=== PATIENT | female | born 1945 | race Caucasian/White ===

== ENCOUNTER 2018-01-02 21:43 | Inpatient (IN) | payer OTHER ==
[~2018-01-02] VITALS: Ht 167.6 cm; Wt 72.6 kg
[2018-01-02] MEDS ORDERED: VASOTEC10 MG PO (21:54)
[2018-01-02] MEDS ORDERED: LEVOXYL150 MCG PO (21:55)
[2018-01-02] MEDS ORDERED: COUMADIN3 MG PO (21:55)
[2018-01-02] MEDS ORDERED: ZOCOR40 MG (21:56)
[2018-01-07] MEDS ORDERED: AMOX1TAB5 PO (19:30)
[2018-01-07] MEDS ORDERED: ZOLOFT50 MG PO (19:30)
== END 2018-01-07 20:00 | disposition home or self-care (01) | DRG 391 ==
LOC: ER 21:43 → MEDI 01-03 09:24
PROC: 3E0F7GC Introduction of Other Therapeutic Substance into Respiratory Tract, Via Natural or Artificial Opening (ICD-10-PCS; principal; 2018-01-03)
PROC: BW21Y0Z Computerized Tomography (CT Scan) of Abdomen and Pelvis using Other Contrast, Unenhanced and Enhanced (ICD-10-PCS; 2018-01-03)
DX: K57.32 Diverticulitis of large intestine without perforation or abscess without bleeding (principal); A41.9 Sepsis, unspecified organism; J20.9 Acute bronchitis, unspecified; F17.210 Nicotine dependence, cigarettes, uncomplicated

== ENCOUNTER 2018-01-11 06:26 | Inpatient (IN) | payer OTHER ==
[~2018-01-11] VITALS: Ht 160 cm; Wt 68.0 kg
[~2018-01-11 06:26] MED LIST: AMOX1TAB5 PO; COUMADIN3 MG PO; LEVOXYL150 MCG PO; VASOTEC10 MG PO; ZOCOR40 MG; ZOLOFT50 MG PO
[2018-01-12] MEDS ORDERED: ZOCOR40 MG PO (13:17)
[2018-01-12] MEDS ORDERED: BUPROPION HCL150 MG PO (13:18)
[2018-01-20] MEDS ORDERED: ISOSORBIDE MONO30 MG PO (17:03)
[2018-01-20] MEDS ORDERED: CLOPIDOGREL BIS75 MG PO (17:03)
[2018-01-20] MEDS ORDERED: COUMADIN5 MG PO (17:03)
[2018-01-20] MEDS ORDERED: LEVOTHYROXINE150 MCG PO (17:03)
[2018-01-20] MEDS ORDERED: ZOCOR40 MG PO (17:03)
[2018-01-20] MEDS ORDERED: TOPROL XL25 M1 PO (17:03)
== END 2018-01-20 19:46 | disposition home or self-care (01) | DRG 281 ==
LOC: ER 06:26 → SEC-K 20:58 → ICU 20:58 → ICU-2 21:27 → ICU 01-12 02:39 → MEDI 01-15 11:37 → MEDJ 01-15 11:37
PROC: BW21ZZZ Computerized Tomography (CT Scan) of Abdomen and Pelvis (ICD-10-PCS; principal; 2018-01-11)
PROC: BW40ZZZ Ultrasonography of Abdomen (ICD-10-PCS; 2018-01-11)
PROC: B246ZZZ Ultrasonography of Right and Left Heart (ICD-10-PCS; 2018-01-11)
PROC: 4A12XM4 Monitoring of Cardiac Stress, External Approach (ICD-10-PCS; 2018-01-15)
PROC: 3E033HZ Introduction of Radioactive Substance into Peripheral Vein, Percutaneous Approach (ICD-10-PCS; 2018-01-15)
PROC: C23GYZZ Positron Emission Tomographic (PET) Imaging of Myocardium using Other Radionuclide (ICD-10-PCS; 2018-01-15)
PROC: 4A12X4Z Monitoring of Cardiac Electrical Activity, External Approach (ICD-10-PCS; 2018-01-15)
DX: I21.4 Non-ST elevation (NSTEMI) myocardial infarction (principal); K55.1 Chronic vascular disorders of intestine; K80.00 Calculus of gallbladder with acute cholecystitis without obstruction; K57.32 Diverticulitis of large intestine without perforation or abscess without bleeding; I25.10 Atherosclerotic heart disease of native coronary artery without angina pectoris; E03.8 Other specified hypothyroidism; E78.00 Pure hypercholesterolemia, unspecified; I10 Essential (primary) hypertension; K52.89 Other specified noninfective gastroenteritis and colitis; Z95.2 Presence of prosthetic heart valve; F17.210 Nicotine dependence, cigarettes, uncomplicated